=== PATIENT | male | born 1970 | race Hispanic/Latino ===

== ENCOUNTER 2023-01-21 06:24 | Day surgery (SDC) | payer BC ==
[2023-01-20 11:34] LABS: BASOPHILS # (AUTO) 0.28 K/uL (0.00-0.20); EOSINOPHILS # (AUTO) 0.02 K/uL (0.00-0.70); EOSINOPHILS % (AUTO) 0.4 % (0.0-8.0); HEMATOCRIT 37.7 % (42-54); IMMATURE GRANULOCYTE ABSOLUTE 0.01 K/uL (0-1); LYMPHOCYTES # (AUTO) 2.2 K/uL (1.0-4.8); LYMPHOCYTES % (AUTO) 46.8 % (21.0-51.0); MEAN CORPUSCULAR HEMOGLOBIN 33.1 pg (27.0-33.0); MEAN CORPUSCULAR HGB CONC 32.6 g/dL (32.0-36.0); MEAN CORPUSCULAR VOLUME 101.3 fL (79-99); MONOCYTES # (AUTO) 0.3 K/uL (0.1-1.0); MONOCYTES % (AUTO) 6.7 % (3.0-13.0); NEUTROPHILS # (AUTO) 1.9 K/uL (1.8-7.7); NEUTROPHILS % (AUTO) 39.9 % (40.0-77.0); PLATELET COUNT (AUTO) 296 K/uL (130-400); RED BLOOD CELL COUNT(AUTO) 3.72 MIL/uL (4.50-6.20); WHITE BLOOD COUNT (AUTO) 4.6 K/uL (4.8-10.8)
[2023-01-20 11:48] LABS: ALBUMIN 4.2 g/dL (3.5-5.0); BILIRUBIN,TOTAL 0.7 mg/dL (0.2-1.0); CREATININE 0.8 mg/dL (0.5-1.5); TOTAL PROTEIN, SERUM 7.1 g/dL (6.0-8.3)
[2023-01-20 12:26] LABS: WBC MORPHOLOGY CONSISTENT W/DIFF
[2023-01-20 12:36] VITALS: BP 118/68; PULSE 66; RESP 18
[~2023-01-21] VITALS: Ht 180.3 cm; Wt 95.4 kg
[2023-01-21] VITALS (16 sets, daily range): BP systolic 119–130; BP diastolic 64–86; PULSE 59–72; RESP 12–18
[~2023-01-21 06:24] MED LIST: AEC81 PO; HYDR500C2 PO; TAMS-1 PO; VITAMIN D2 PO
[2023-01-21] MEDS ORDERED: CEFAZOLIN SODIUM 2 GM VIAL ONE (06:37)
[2023-01-21] MEDS ORDERED: LACTATED RINGERS 1000ML 1,000 ML IV ONE (06:37)
[2023-01-21] MEDS ORDERED: FAMOTIDINE 20MG VIAL IV ONE (07:06)
[2023-01-21] MEDS ORDERED: HYDROMORPHONE 1 MG INJ ONE (07:06)
[2023-01-21] MEDS ORDERED: PHENYLEPHRINE HCL 10 MG/ML 1ML VIAL IV ONE (07:12)
[2023-01-21] MEDS ORDERED: MIDAZOLAM HCL 1 MG/ML 2ML VIAL ONE (07:15)
[2023-01-21] MEDS ORDERED: LIDOCAINE PF 100MG/5ML (2%) SYRINGE 5ML ONE (07:15)
[2023-01-21] MEDS ORDERED: GLYCOPYRROLATE 1 MG/5 ML SYRINGE ONE (07:15)
[2023-01-21] MEDS ORDERED: PROPOFOL 10 MG/ML 20ML VIAL IV ONE (07:15)
[2023-01-21] MEDS ORDERED: ROCURONIUM 10MG/1ML SYR 10 MG/ML ML ONE (07:15)
[2023-01-21] MEDS ORDERED: FENTANYL CITRATE PF 50 MCG/1 ML 2ML VIAL ONE (07:16)
[2023-01-21] MEDS ORDERED: BUPIVACAINE/PF 0.5% 30ML VIAL ONE (07:24)
[2023-01-21] MEDS ORDERED: IOHEXOL-350 50ML VIAL IV ONE (07:51)
[2023-01-21] MEDS ORDERED: ONDANSETRON 4MG INJ ONE (08:11)
[2023-01-21] MEDS ORDERED: NEOSTIGMINE METHYLSULFATE 1MG/ML IV ONE (08:52)
== END 2023-01-21 10:45 | disposition home or self-care (01) ==
LOC: DAH 06:24
PROVIDERS: ATTEND Surgery
DX: K80.10 Calculus of gallbladder with chronic cholecystitis without obstruction (principal); R93.2 Abnormal findings on diagnostic imaging of liver and biliary tract; N40.0 Benign prostatic hyperplasia without lower urinary tract symptoms; K21.9 Gastro-esophageal reflux disease without esophagitis; R19.7 Diarrhea, unspecified; R10.13 Epigastric pain; Z83.3 Family history of diabetes mellitus; Z80.6 Family history of leukemia; Z82.49 Family history of ischemic heart disease and other diseases of the circulatory system; Z87.891 Personal history of nicotine dependence; Z72.89 Other problems related to lifestyle; Z79.82 Long term (current) use of aspirin
CPT/HCPCS: 80053; 85025; 86850; 86900; 86901; 36415; 93005; 47563; 88304; 74300; A6260; J7030; A4215; C1758; J7120; J3490 ×2; J3010; J1170; J2001; J2250; J2704; J2405; J2710; J0665; J2371; Q9967; J0690; C1769 ×3; A4649 ×2; A5120; A4600; G0168